=== PATIENT | male | born 1980 | race Caucasian/White ===

== ENCOUNTER 2024-05-26 07:54 | Inpatient (IN) ==
--- NOTE | 2024-05-26 08:06 | Emergency Department Note ---
History of Present Illness General Chief complaint: Animal Bite Stated complaint: 2ND RABIES VACCINE Time Seen by Provider: 05/26/24 08:05 History of Present Illness Maximum Pain Intensity: 2 This is a 44-year-old male that presents to the emergency department for his second rabies vaccine injection of the 4 part series. Patient and at bedside concerned about possible infection noting swelling of the left hand. Patient also notes trouble flexing digits 2 through 5 of the left hand. Patient notes the swelling is actually improved compared to yesterday but still present. He notes he was at the game and was walking around and noticed some swelling. He described the pain in the left hand as a throbbing sensation. He denies any fevers. Last dose of Augmentin was yesterday evening. Indication for the antibiotic previously and rabies series was a dog bite to the left hand. He has 2 dog bites noted to the dorsum of the left hand and also webspace between digits 2 and 3 of the left hand. Home Medications Medication Instructions Recorded Confirmed Type amoxicillin 875 mg-potassium 1 tab PO BID #8 tabs 05/23/24 05/26/24 Rx clavulanate 125 mg tablet Allergies Allergy/AdvReac Type Severity Reaction Status Date / Time No Known Allergies Allergy Unverified 05/26/24 09:25 Past Med/Surg History Problem List (Updated 05/26/24 @ 08:21 by Roni Stubbs PA-C) Dog bite of left hand with infection (Acute) Need for prophylactic vaccination against rabies (Acute) Dog bite of right hand (Acute) Dog bite of left hand (Acute) Laceration of multiple sites of left hand and fingers (Acute) Laceration of multiple sites of right hand and fingers (Acute) Medical History (Updated 05/26/24 @ 08:21 by Roni Stubbs PA-C) No significant past medical history Social History (Updated 05/24/24 @ 01:17 by Migel Hale) Smoking Status: Never smoker Hx Alcohol Use: Yes Alcohol type: beer Hx Substance Use: No Preferred Language: Danish Communication Ability: Effective 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 Beliefs That Will Affect Care: None marital status: Current Living Situation: Spouse current occupational status: employed Feels Safe at Home: Yes Review of Systems A total of 6 systems reviewed and were otherwise negative Physical Exam Vital Signs Vital Signs - 24 hr 05/26/24 07:58 Temperature 36.4 C L Temperature Source Oral Pulse Rate 58 L Respiratory Rate 20 Respiratory Effort / Characteristics Non-Labored Spontaneous Respiratory Depth Normal Respiratory Pattern Regular Blood Pressure 152/85 H Blood Pressure Mean 107 Pulse Oximetry 96 Oxygen Delivery Method Room Air Sepsis Recent Fever Within 48 Hours No Sepsis New/Unexplained Change in Mental Status N/A Sepsis Action Taken by Nursing No Action Required VITAL SIGNS - Vital signs and nursing notes were reviewed. Stable and afebrile. GENERAL -44-year-old male appearing his stated age who is in no acute distress. Communicates well with provider and answers questions appropriately. SKIN -sutured wound to the dorsum of the left hand between the first and second metacarpal as well as webspace on the medial aspect of the left index. There is surrounding erythema, edema tracking to the dorsum of the left hand and into the left forearm area. HEAD - NC/AT. LUNGS - Chest wall symmetric without accessory muscle use, intercostals retractions, or central cyanosis. Normal vesicular breath sounds CTA B/L. No wheezes, rales, or rhonchi appreciated. CARDIAC - RRR EXTREMITIES - No clubbing or peripheral cyanosis. Skin as above. Tenderness to the dorsum of the left hand. Patient unable to fully flex and extend the digits of the left hand. Capillary refill of all digits of the left hand within normal limits. Left radial pulse within normal limits. +5/5 strength noted in UE/LE bilaterally. NEUROLOGIC -sensory intact to light touch throughout the left upper extremity without deficit. PSYCH -alert, oriented and pleasant on examination. Course Administered Medications Acetaminophen (Acetaminophen 500 Mg Tab) 1,000 mg PO Q6H PRN PRN Reason: pain/fever Stop: 06/25/24 13:00 Last Admin: 05/26/24 21:22 Dose: 1,000 mg Documented By: JESUS Ampicillin Sodium/Sulbactam Sodium (Unasyn) 3,000 mg in 100 mls @ 200 mls/hr IV Q6H [facility]; Protocol Stop: 06/02/24 13:59 Last Infusion: 05/26/24 20:31 Dose: Infused Documented By: Admin: 05/26/24 19:59 Dose: 200 mls/hr Documented By: Infusion: 05/26/24 16:20 Dose: Infused Documented By: Admin: 05/26/24 15:44 Dose: 200 mls/hr Documented By: EMILY Discontinued Medications Ampicillin Sodium/Sulbactam Sodium (Unasyn) 3,000 mg in 100 mls @ 200 mls/hr IV NOW STA Stop: 05/26/24 08:48 Last Infusion: 05/26/24 09:45 Dose: Infused Documented By: Admin: 05/26/24 09:06 Dose: 200 mls/hr Documented By: SHIRA Ketorolac Tromethamine (Ketorolac Tromethamine 15 Mg/Ml Vial) 15 mg IV NOW ONE Stop: 05/26/24 13:54 Last Admin: 05/26/24 14:10 Dose: 15 mg Documented By: EMILY Rabies Vaccine (Rabies Vacc (Rabavert) (Pcec)/Pf 2.5 Units/Ml Syr) 1 ml IM .ONCE ONE Stop: 05/26/24 08:20 Last Admin: 05/26/24 09:05 Dose: 1 ml Documented By: SHIRA Medical Decision Making Laboratory Data 05/26/24 08:24 05/26/24 08:24 Lab Results 05/26/24 Range/Units 08:24 WBC 5.77 (4.8-10.8) K/ul RBC 4.61 L (4.70-6.10) M/uL Hgb 13.4 L (14.0-18.0) g/dl Hct 39.4 L (42.0-52.0) % MCV 85.5 (80.0-100.0) fL MCH 29.1 (25.0-34.0) pg MCHC 34.0 (32.0-36.0) g/dL RDW Std Deviation 37.2 (36.4-46.3) fL RDW Coeff of Cherelle 12.0 (11.5-14.5) % Plt Count 197 (130-400) K/uL MPV 10.0 (9.4-12.4) fL Immature Gran % (Auto) 3.5 % Neut % (Auto) 56.0 % Lymph % (Auto) 23.2 % [place] % (Auto) 13.5 % Eos % (Auto) 2.4 % Baso % (Auto) 1.4 % Neut # (Auto) 3.23 (1.40-6.50) K/uL Lymph # (Auto) 1.34 (1.20-3.40) K/uL [place] # (Auto) 0.78 H (0.11-0.59) K/uL Eos # (Auto) 0.14 (0.00-0.50) K/uL Baso # (Auto) 0.08 (0.00-0.20) K/uL Immature Gran # (Auto) 0.20 (0.01-0.20) K/uL Sodium 140 (136-145) mmol/L Potassium 4.4 (3.5-5.1) mmol/L Chloride 107 (98-107) mmol/L Carbon Dioxide 27 (21-32) mmol/L Anion Gap 6 (3-11) BUN 17 (6-23) mg/dl Creatinine 0.95 (0.6-1.4) mg/dl Est Cr Clr Drug Dosing 140.7 ml/min Est GFR ( Amer) 110.8 ml/min Est GFR (Non-Af Amer) 95.6 ml/min BUN/Creatinine Ratio 17.9 (10-20) Glucose 101 H (70-99(Fasting)) mg/dl Calcium 9.2 (8.6-10.3) mg/dl Imaging Data Radiologist's Impression: Hand X-Ray 05/26/24 09:24 XR hand LT min 3V routine CLINICAL HISTORY: Left hand infection s/p dog bite COMPARISON: None FINDINGS: Alignment of the left hand is anatomic. There is dorsal soft tissue swelling overlying the metacarpals. There are no fractures or radiopaque foreign bodies. No foci of bony destruction are present. Mild degenerative changes at the distal radioulnar joint are present. IMPRESSION: 1. No fractures within the left hand. No evidence for acute osteomyelitis. 2. Dorsal hand soft tissue swelling. ACT 112: Negative or not required by law. Electronically signed by: Davonte Inman M.D. 05/26/2024 10:12 AM MDM Narrative Patient was seen and evaluated as above in room D05. Review was performed of triage nursing notes and vital signs. I did review pertinent previous visits and patient history. After obtaining a thorough history and physical examination the above work up was performed. Patient presents to us today for second rabies vaccine but also with some edema and erythema to the dorsum of the left hand tracking to the wrist where the bites are located. The patient was administered the scheduled rabies vaccine but I am concerned about infection to the dorsum of the left hand. Options of care were discussed with the patient. IV access was established. Labs were drawn. IV Unasyn was ordered. Last dose of Augmentin was yesterday evening. He has been compliant with this antibiotic. Despite the antibiotic, I am concerned about progressing infection. Labs reveal no leukocytosis. Minor anemia noted with hemoglobin of 13.4. No emergent metabolic disturbance. In discussing options with the patient as well as at bedside we will proceed with inpatient management with IV antibiotic therapy. I also ordered an x-ray of the left hand. I did cleanse the hand wounds with sterile saline, dried them with sterile gauze. Dressing was applied and I did outline the erythematous regions to be able to trend. Case discussed with the hospitalist service. Please refer to further documentation regarding his stay. Patient is to still finish out the rabies series as scheduled. He will need to return on ,May 30 as well as , 06 of June for one rabies vaccine each day. This is a change from initial discharge instructions as initially noted return on 05/31 and 06/07. GCS: 15 In the evaluation and treatment of this patient the following differential diagnoses were entertained: Cellulitis, infection, fracture, among others Impression & Plan Dog bite of left hand with infection Discharge Plan Visit Data Chief Complaint: Animal Bite Stated Complaint: 2ND RABIES VACCINE ED Provider: John Cordero ED Midlevel Provider: Roni Stubbs Discharge Problem: Dog bite of left hand with infection Patient Disposition: Admitted As Inpatient Condition: Good Discharge Instructions Interventions: ED Discharge Assessment Last Done: 05/26/24 12:29
[2024-05-26 08:40] LABS: Basophils # (auto) 0.08 K/uL (0.00-0.20); Basophils % (auto) 1.4 %; Eosinophils # (auto) 0.14 K/uL (0.00-0.50); Eosinophils % (auto) 2.4 %; Hematocrit (blood only) 39.4 % (42.0-52.0); Hemoglobin 13.4 g/dl (14.0-18.0); Immature Granulocytes % (auto) 3.5 %; Lymphocytes # (auto) 1.34 K/uL (1.20-3.40); Lymphocytes % (auto) 23.2 %; Mean Corpuscular Hemoglobin 29.1 pg (25.0-34.0); Mean Corpuscular Volume 85.5 fL (80.0-100.0); Monocytes # (auto) 0.78 K/uL (0.11-0.59); Monocytes % (auto) 13.5 %; Neutrophils # (auto) 3.23 K/uL (1.40-6.50); Platelet Count 197 K/uL (130-400); RDW Standard Deviation 37.2 fL (36.4-46.3); Red Blood Count 4.61 M/uL (4.70-6.10); White Blood Count 5.77 K/ul (4.8-10.8)
[2024-05-26 08:59] LABS: BUN Creatinine Ratio 17.9 (10-20); Calcium 9.2 mg/dl (8.6-10.3); Creatinine Clr Calc Pharmacy 140.7 ml/min; Est GFR (African American) 110.8 ml/min; Est GFR (Non-African American) 95.6 ml/min; Potassium 4.4 mmol/L (3.5-5.1)
[2024-05-26] MEDS: [UNRECOGNIZED DRUG - OTHER] IM ONE (09:05)
[2024-05-26] MEDS: AMPICILLIN/SULBACTAM SOD 3,000 MG/100 ML BAG IV STA (09:06)
--- NOTE | 2024-05-26 10:14 | XRay Report ---
XR hand LT min 3V routine CLINICAL HISTORY: Left hand infection s/p dog bite COMPARISON: None FINDINGS: Alignment of the left hand is anatomic. There is dorsal soft tissue swelling overlying the metacarpals. There are no fractures or radiopaque foreign bodies. No foci of bony destruction are pr esent. Mild degenerative changes at the distal radioulnar joint are present. IMPRESSION: 1. No fractures within the left hand. No evidence for acute osteomyelitis. 2. Dorsal hand soft tissue swelling. ACT 112: Negative or not required by law. Electronically signed by: Davonte Inman M.D. 05/26/2024 10:12 AM
--- NOTE | 2024-05-26 10:22 | History & Physical Report ---
Date of Service May 26, 2024 Assessment & Plan (1) Dog bite of left hand with infection: Plan: HAnd cellulitis following dog bites, failed outpatient management Patient comes back to the emergency department today following failed outpatient antibiotic management of cellulitis due a dog bite The immunization status of the dog is unknown Patient already received 2 doses of active rabies vaccine Start IV Unasyn 3 g every 6 hours (2) Laceration of multiple sites of left hand and fingers: Plan: The lacerations were sutured in the emergency department The wound looks clean (3) Need for prophylactic vaccination against rabies: Plan: Received 2 doses of continuous vaccine Will receive 2 more before Plan Admit inpatient Full code DVT prophylaxis SCDs History of Present Illness Chief Complaint: hAnd redness and swelling Primary Care Provider: Duy Martin Is a 44-year-old male with no significant past medical history who comes back to the emergency department today on account of worsening left hand redness and swelling. Patient has initially presented Emergency Department on May 23, 2024 was bitten on both hands by 2 people dogs. 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 He sustained multiple dog bites as and came to the emergency department on that day. He was given Augmentin and also a 1 dose of anti rabies injection. According to him, they called several times to find out the rabies vaccination status of the dog but they could not get a straight answer. He was on Augmentin for couple days however he said that the redness and the swelling got worse so he decided to come back to the emergency department today. Here in the ED an x-ray of the hand has been obtained result pending he has been started on IV Unasyn and will be admitted to the hospital further management. Allergies Allergy/AdvReac Type Severity Reaction Status Date / Time No Known Allergies Allergy Unverified 05/26/24 09:25 Home Medications Medication Instructions Recorded Confirmed Type amoxicillin 875 mg-potassium 1 tab PO BID #8 tabs 05/23/24 05/26/24 Rx clavulanate 125 mg tablet Past Med/Surg History Problem List (Updated 05/26/24 @ 08:21 by Roni Stubbs PA-C) Dog bite of left hand with infection (Acute) Need for prophylactic vaccination against rabies (Acute) Dog bite of right hand (Acute) Dog bite of left hand (Acute) Laceration of multiple sites of left hand and fingers (Acute) Laceration of multiple sites of right hand and fingers (Acute) Medical History (Updated 05/26/24 @ 08:21 by Roni Stubbs PA-C) No significant past medical history Social History (Updated 05/24/24 @ 01:17 by Migel Hale) Smoking Status: Never smoker Preferred Language: [place] marital status: Current Living Situation: Spouse current occupational status: employed Feels Safe at Home: Yes Review of Systems Review of Systems: All systems reviewed are negative, apart from the ones contained in the history. Physical Exam Physical Exam: The patient is awake, alert and oriented 3, well developed and well nourished, normocephalic and atraumatic, lying in bed and in no acute distress. HEENT--PERRL, EOMI, mucous membranes and oropharynx mildly dry Neck--supple. No JVD. No bruits. Thyroid normal, trachea midline, no adenopathy. Heart--normal S1 and S2. No murmurs, rubs or gallops. Lungs--clear bilaterally, no respiratory distress, no accessory muscle use. Abdomen--normal bowel sounds and soft. Extremities--Left hand redness and swelling Dermatologic--normal skin turgor, normal color, no abnormal lymph nodes, no rash. Neurologic--cranial nerves II through XII grossly intact. Rheumatologic--normal range of motion. Psychiatric--normal affect. Results & Data Results & Data Vital Signs (Past 12 Hours) Vital Signs Temp Pulse Resp BP Pulse Ox O2 Del Method 05/26/24 07:58 97.5 F L 58 L 20 152/85 H 96 Room Air PG Care Time/CCT Total # of Minutes Spent Total Time Spent with Patient: Total time spent is greater than 50% in coordination of care (as documented) at patient's floor/unit and/or counseling patient: Coding Level of Care Code 96477 INT INP/OBS CARE 3/75MIN Diagnoses Dog bite of left hand with infection S61.452A; L08.9; W54.0XXA Laceration of multiple sites of left hand and fingers S61.412A; S61.219A Encounter type: initial encounter Need for prophylactic vaccination against rabies Z23 Time Spent (min) 75 (2) Laceration of multiple sites of left hand and fingers Encounter type: initial encounter Qualified Code(s): S61.412A - Laceration without foreign body of left hand, initial encounter; S61.219A - Laceration without foreign body of unspecified finger without damage to nail, initial encounter
[2024-05-26] MEDS ORDERED: AMPICILLIN SOD/SULBACTAM SOD 3 GM VIAL IV SCH (13:01)
[2024-05-26] MEDS ORDERED: ACETAMINOPHEN 325 MG TAB PO PRN (13:01)
[2024-05-26] MEDS ORDERED: ONDANSETRON INJ 2 MG/ML 2 ML VIAL IV PRN (13:01)
[2024-05-26] MEDS: KETOROLAC TROMETHAMINE 15 MG/ML VIAL IV ONE (14:10)
[2024-05-26] MEDS: AMPICILLIN/SULBACTAM SOD 3,000 MG/100 ML BAG IV SCH (15:44)
[2024-05-26] MEDS: ACETAMINOPHEN 500 MG TAB PO PRN (21:22)
[2024-05-27 07:12] LABS: Hematocrit (blood only) 38.1 % (42.0-52.0); Hemoglobin 13.1 g/dl (14.0-18.0); Mean Corpuscular Hemoglobin 29.4 pg (25.0-34.0); Mean Corpuscular Hgb Conc 34.4 g/dL (32.0-36.0); Mean Corpuscular Volume 85.6 fL (80.0-100.0); Mean Platelet Volume 10.2 fL (9.4-12.4); Platelet Count 188 K/uL (130-400); RDW Coefficient of Variation 11.9 % (11.5-14.5); RDW Standard Deviation 36.7 fL (36.4-46.3); Red Blood Count 4.45 M/uL (4.70-6.10); White Blood Count 5.28 K/ul (4.8-10.8)
[2024-05-27 07:28] LABS: BUN Creatinine Ratio 19.6 (10-20); Calcium 8.9 mg/dl (8.6-10.3); Est GFR (African American) 101.7 ml/min; Est GFR (Non-African American) 87.7 ml/min; Potassium 4.4 mmol/L (3.5-5.1)
--- NOTE | 2024-05-27 11:36 | Hospitalist Progress Note ---
Date of Service May 27, 2024 Assessment & Plan (1) Dog bite of left hand with infection: Plan: HAnd cellulitis following dog bites, failed outpatient management Patient comes back to the emergency department today following failed outpatient antibiotic management of cellulitis due a dog bite The immunization status of the dog is unknown Patient already received 2 doses of active rabies vaccine Start IV Unasyn 3 g every 6 hours Some improvement in the area of cellulitis and redness (2) Laceration of multiple sites of left hand and fingers: Plan: The lacerations were sutured in the emergency department The wound looks clean Consult wound care (3) Need for prophylactic vaccination against rabies: Plan: Received 2 doses of continuous vaccine Will receive 2 more before Plan Hopefully discharge home on oral antibiotics tomorrow Full code DVT prophylaxis SCDs Admission and Anticipated Discharge Date Admission Date: May 26, 2024 Subjective Patient seen and examined, denies fever or chills overnight, patient said he could be discharged home today because of work Review of Systems Review of Systems: All systems reviewed are negative, apart from the ones contained in the history. Physical Exam Physical Exam: The patient is awake, alert and oriented 3, well developed and well nourished, normocephalic and atraumatic, lying in bed and in no acute distress. HEENT--PERRL, EOMI, mucous membranes and oropharynx mildly dry Neck--supple. No JVD. No bruits. Thyroid normal, trachea midline, no adenopathy. Heart--normal S1 and S2. No murmurs, rubs or gallops. Lungs--clear bilaterally, no respiratory distress, no accessory muscle use. Abdomen--normal bowel sounds and soft. Extremities--Left hand redness and swelling Dermatologic--normal skin turgor, normal color, no abnormal lymph nodes, no rash. Neurologic--cranial nerves II through XII grossly intact. Rheumatologic--normal range of motion. Psychiatric--normal affect. Results & Data Results & Data Vital Signs (Past 12 Hours) Vital Signs Temp Pulse Resp BP Pulse Ox O2 Del Method 05/27/24 07:48 98.2 F 55 L 16 125/73 96 Room Air PG Care Time/CCT Total # of Minutes Spent Total Time Spent with Patient: Total time spent is greater than 50% in coordination of care (as documented) at patient's floor/unit and/or counseling patient: Coding Level of Care Code 69973 SUB INP/OBS CARE 2/35MIN Diagnoses Dog bite of left hand with infection S61.452A; L08.9; W54.0XXA Laceration of multiple sites of left hand and fingers S61.412A; S61.219A Encounter type: initial encounter Need for prophylactic vaccination against rabies Z23 Time Spent (min) 35 (2) Laceration of multiple sites of left hand and fingers Encounter type: initial encounter Qualified Code(s): S61.412A - Laceration without foreign body of left hand, initial encounter; S61.219A - Laceration without foreign body of unspecified finger without damage to nail, initial encounter
[2024-05-27 20:35] VITALS: O2SAT 96
[2024-05-28 07:41] VITALS: BP 153/90; PULSE 60; TEMP 98.6
[2024-05-28 07:44] VITALS: RESP 18
[2024-05-28 09:04] LABS: Hematocrit (blood only) 39.8 % (42.0-52.0); Hemoglobin 14.2 g/dl (14.0-18.0); Mean Corpuscular Hemoglobin 29.6 pg (25.0-34.0); Mean Corpuscular Hgb Conc 35.7 g/dL (32.0-36.0); Mean Corpuscular Volume 82.9 fL (80.0-100.0); Mean Platelet Volume 9.9 fL (9.4-12.4); Platelet Count 239 K/uL (130-400); RDW Coefficient of Variation 11.8 % (11.5-14.5); RDW Standard Deviation 35.7 fL (36.4-46.3)
--- NOTE | 2024-05-28 10:55 | Discharge Summary ---
Date of Service May 28, 2024 Admission HPI Per Admitting Provider Is a 44-year-old male with no significant past medical history who comes back to the emergency department today on account of worsening left hand redness and swelling. Patient has initially presented Emergency Department on May 23, 2024 was bitten on both hands by 2 people dogs. 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 He sustained multiple dog bites as and came to the emergency department on that day. He was given Augmentin and also a 1 dose of anti rabies injection. According to him, they called several times to find out the rabies vaccination status of the dog but they could not get a straight answer. He was on Augmentin for couple days however he said that the redness and the swelling got worse so he decided to come back to the emergency department today. Here in the ED an x-ray of the hand has been obtained result pending he has been started on IV Unasyn and will be admitted to the hospital further management. Admission Exam (Per Admitting) Constitutional The patient is awake, alert and oriented 3, well developed and well nourished, normocephalic and atraumatic, lying in bed and in no acute distress. HEENT--PERRL, EOMI, mucous membranes and oropharynx mildly dry Neck--supple. No JVD. No bruits. Thyroid normal, trachea midline, no adenopathy. Heart--normal S1 and S2. No murmurs, rubs or gallops. Lungs--clear bilaterally, no respiratory distress, no accessory muscle use. Abdomen--normal bowel sounds and soft. Extremities--no cyanosis or clubbing. No edema. Dermatologic--normal skin turgor, normal color, no abnormal lymph nodes, no rash. Neurologic--cranial nerves II through XII grossly intact. Rheumatologic--normal range of motion. Psychiatric--normal affect. Discharge Data Consultations 05/26/24 09:11 ED Decision to Admit Stat Hospital Course (1) Dog bite of left hand with infection: HAnd cellulitis following dog bites, failed outpatient management Patient comes back to the emergency department today following failed outpatient antibiotic management of cellulitis due a dog bite The immunization status of the dog is unknown Patient already received 2 doses of active rabies vaccine Start IV Unasyn 3 g every 6 hours Some improvement in the area of cellulitis and redness discharge on PO augmentin for 1 more week (2) Laceration of multiple sites of left hand and fingers: The lacerations were sutured in the emergency department The wound looks clean Consult wound care (3) Need for prophylactic vaccination against rabies: Received 2 doses of continuous vaccine Will receive 2 more before Plan Hopefully discharge home on oral antibiotics tomorrow Full code DVT prophylaxis SCDs Coding Level of Care Code 16533 INP/OBS DISCH >30 MIN Diagnoses Dog bite of left hand with infection S61.452A; L08.9; W54.0XXA Laceration of multiple sites of left hand and fingers S61.412A; S61.219A Encounter type: initial encounter Need for prophylactic vaccination against rabies Z23 Time Spent (min) 35
== END 2024-05-28 09:40 | disposition home or self-care (01) | DRG 603 ==
LOC: ED 07:54 → 3W 09:58